=== PATIENT | male | born 1935 | race Caucasian/White ===

== ENCOUNTER 2016-12-28 20:04 | Emergency (ER) | payer MEDICARE, BC ==
[2016-12-28] MEDS ORDERED: Furosemide 40 MG/4 ML VIAL IVPUSH ONE (20:53)
[2016-12-28 21:10] LABS: CHLORIDE,CL 102 mmol/L (101-111); SODIUM,NA 140 mmol/L (135-145)
--- NOTE | 2016-12-28 21:34 | EDM.PDOC ---
ED HPI GENERAL MEDICAL PROBLEM - General Chief Complaint: Chest Pain Stated Complaint: SOB, CHEST PAINS, [id number] Time Seen by Provider: 12/28/16 20:25 Source of Information: Reports: Patient History Limitations: Reports: No Limitations - History of Present Illness INITIAL COMMENTS - FREE TEXT/NARRATIVE: ED ambulatory with c/o increased SOB over past month. Admits some noncompliance with 3rd dose of lasix, but has been taking three times daily for past 2 days, Lower extremity edema improved. SOB worse when flat, with activity and conversation. Patient had spoken with PCP Dr. Jayesh koroma and was told to come to ED. No chest pain, Patient hx cardiomyopathy, chronic a fib, hx CHF, Aortic valve replacement. Onset: Gradual Duration: Week(s): (4) Severity: Mild Associated Symptoms: Reports: Shortness of Breath. Denies: Chest Pain, Cough, cough w sputum, Loss of Appetite, Weakness - Related Data Allergies Allergy/AdvReac Type Severity Reaction Status Date / Time aspartame Allergy Hives Verified 12/28/16 20:29 peanut Allergy Hives Verified 12/28/16 20:28 Home Meds: Home Meds Carvedilol [Carvedilol] 25 mg PO BID 10/30/14 [History] Digoxin [Digox] 125 mcg PO DAILY 10/30/14 [History] Furosemide [Furosemide] 40 mg PO BID 10/30/14 [History] Lisinopril [Lisinopril] 40 mg PO DAILY 10/30/14 [History] Potassium 99 mg PO DAILY 10/30/14 [History] Warfarin [Coumadin] 2.5 mg PO ASDIRECTED 10/30/14 [History] amLODIPine [Norvasc] 5 mg PO DAILY 10/30/14 [History] Past Medical History Cardiovascular History: Reports: Heart Failure, Other (See Below) Musculoskeletal History: Reports: Arthritis Neurological History: Reports: Other (See Below) 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 Oncologic (Cancer) History: Reports: Other (See Below) 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 - Past Surgical History Cardiovascular Surgical History: Reports: Other (See Below) Musculoskeletal Surgical History: Reports: Other (See Below) Social & Family History - Family History Family Medical History: Noncontributory - Tobacco Use Smoking Status *Q: Never Smoker Years of Tobacco use: 50 Used Tobacco, but Quit: Yes Month Tobacco Last Used: 75 Second Hand Smoke Exposure: No - Caffeine Use Caffeine Use: Reports: None - Alcohol Use Days Per Week of Alcohol Use: 0 - Recreational Drug Use Recreational Drug Use: No - Living Situation & Occupation Living situation: Reports: , with Spouse Occupation: Retired ED ROS GENERAL - Review of Systems Review Of Systems: See Below Constitutional: Reports: No Symptoms HEENT: Reports: No Symptoms Respiratory: Reports: Shortness of Breath. Denies: Cough, Sputum Cardiovascular: Reports: Dyspnea on Exertion, Edema, Orthopnea. Denies: Chest Pain, Palpitations Endocrine: Reports: No Symptoms GI/Abdominal: Reports: No Symptoms : Reports: No Symptoms Musculoskeletal: Reports: No Symptoms Skin: Reports: No Symptoms Neurological: Reports: No Symptoms ED EXAM, GENERAL - Physical Exam Exam: See Below Exam Limited By: No Limitations General Appearance: Alert, Moderate Distress Eye Exam: Bilateral Eye: EOMI, PERRL Ears: Normal External Exam, Hearing Loss (mild) Nose: Normal Inspection Throat/Mouth: Normal Inspection Head: Atraumatic Neck: Limited Range of Motion Respiratory/Chest: Decreased Breath Sounds (left) Cardiovascular: Normal Peripheral Pulses, Irregularly Irregular, Other ( swooshing murmur). No: No Edema (2+ to knees) GI/Abdominal: Normal Bowel Sounds, Soft Back Exam: Normal Inspection Extremities: Pedal Edema Neurological: Alert, Oriented, Normal Cognition Psychiatric: Normal Affect Skin Exam: Warm, Dry, Intact, Normal Color Course - Vital Signs Last Recorded V/S: Last Vital Signs Temp 98.2 F 12/28/16 21:42 Pulse 68 12/28/16 21:42 Resp 20 12/28/16 21:42 BP 105/56 L 12/28/16 21:42 Pulse Ox 93 L 12/28/16 21:42 - Orders/Labs/Meds Orders: Active Orders 24 hr Category Date Time Status EKG 12 Lead [EKG Documentation Completion] [RC] URGENT Care 12/28/16 20:11 Active Labs: Laboratory Tests 12/28/16 12/28/16 12/28/16 Range/Units 20:18 20:18 20:18 WBC 9.0 (5.0-10.0) 10^3/uL RBC 4.86 (4.6-6.2) 10^6/uL Hgb 15.7 (14.0-18.0) g/dL Hct 45.9 (40.0-54.0) % MCV 94.4 (80-100) fL MCH 32.3 (27.0-34.0) pg MCHC 34.2 (33.0-35.0) g/dL Plt Count 173 (150-450) 10^3/uL Neut % (Auto) 63.9 (42.2-75.2) % Lymph % (Auto) 19.0 L (20.5-50.1) % [place] % (Auto) 12.1 H (2-8) % Eos % (Auto) 4.2 H (1.0-3.0) % Baso % (Auto) 0.8 (0.0-1.0) % PT (9.0-12.0) SEC INR (0.9-1.2) Sodium 140 (135-145) mmol/L Potassium 4.0 (3.6-5.0) mmol/L Chloride 102 (101-111) mmol/L Carbon Dioxide 29.0 (21.0-31.0) mmol/L Anion Gap 13.0 BUN 17 (7-18) mg/dL Creatinine 0.9 (0.6-1.3) mg/dL Est Cr Clr Drug Dosing 66.55 mL/min Estimated GFR (MDRD) > 60 BUN/Creatinine Ratio 18.88 Glucose 105 (74-105) mg/dL Calcium 8.0 L (8.4-10.2) mg/dl Magnesium 2.0 (1.8-2.5) mg/dL Total Bilirubin 0.7 (0.2-1.0) mg/dL AST 39 (10-42) IU/L ALT 29 (10-60) IU/L Alkaline Phosphatase 111 (42-121) IU/L CK-MB (CK-2) 2.60 (0.4-4.7) ng/mL Troponin I 0.02 (0.00-0.02) ng/ml B-Natriuretic Peptide 194 H (0-100) pg/ml Total Protein 4.9 L (6.7-8.2) g/dl Albumin 2.6 L (3.2-5.5) g/dl Globulin 2.3 Albumin/Globulin Ratio 1.13 Amylase 68 (28-100) U/L Lipase 36 (22-51) U/L Digoxin (0-2.5) ng/ml 12/28/16 12/28/16 Range/Units 20:18 20:18 WBC (5.0-10.0) 10^3/uL RBC (4.6-6.2) 10^6/uL Hgb (14.0-18.0) g/dL Hct (40.0-54.0) % MCV (80-100) fL MCH (27.0-34.0) pg MCHC (33.0-35.0) g/dL Plt Count (150-450) 10^3/uL Neut % (Auto) (42.2-75.2) % Lymph % (Auto) (20.5-50.1) % [place] % (Auto) (2-8) % Eos % (Auto) (1.0-3.0) % Baso % (Auto) (0.0-1.0) % PT 21.5 H (9.0-12.0) SEC INR 2.1 H (0.9-1.2) Sodium (135-145) mmol/L Potassium (3.6-5.0) mmol/L Chloride (101-111) mmol/L Carbon Dioxide (21.0-31.0) mmol/L Anion Gap BUN (7-18) mg/dL Creatinine (0.6-1.3) mg/dL Est Cr Clr Drug Dosing mL/min Estimated GFR (MDRD) BUN/Creatinine Ratio Glucose (74-105) mg/dL Calcium (8.4-10.2) mg/dl Magnesium (1.8-2.5) mg/dL Total Bilirubin (0.2-1.0) mg/dL AST (10-42) IU/L ALT (10-60) IU/L Alkaline Phosphatase (42-121) IU/L CK-MB (CK-2) (0.4-4.7) ng/mL Troponin I (0.00-0.02) ng/ml B-Natriuretic Peptide (0-100) pg/ml Total Protein (6.7-8.2) g/dl Albumin (3.2-5.5) g/dl Globulin Albumin/Globulin Ratio Amylase (28-100) U/L Lipase (22-51) U/L Digoxin 0.6 (0-2.5) ng/ml Meds: Medications Discontinued Medications Generic Name Dose Route Start Last Admin Trade Name Porfirio PRN Reason Stop Dose Admin Furosemide 40 mg 12/28/16 20:53 12/28/16 21:00 Lasix IVPUSH 12/28/16 20:54 40 mg NOW ONE Administration - Re-Assessments/Exams Free Text/Narrative Re-Assessment/Exam: Symptoms improved following Lasix IV and 1500ml diuresis. Talking full sentences without noted obvious dyspnea. Discussed potential admission or transfer with patient for further management of pulmonary edema. Patient refused admission or transfer. Agreeable to follow with PCP in am. present during recommendations. Departure - Departure Time of Disposition: 22:35 Disposition: Home, Self-Care 01 Condition: Fair Clinical Impression: Dyspnea, Cardiomyopathy, Chronic atrial fibrillation, Pleural effusion Forms: ED Department Discharge Additional Instructions: Take lasix as directed three times daily follow up with Dr Wetzel's office in am and with Dr. Mcconnell Urgent return to ER if increased difficulty breathing or chest pain - My Orders Last 24 Hours: My Active Orders 12/28/16 20:11 EKG 12 Lead [EKG Documentation Completion] [RC] URGENT - Assessment/Plan Last 24 Hours: My Active Orders 12/28/16 20:11 EKG 12 Lead [EKG Documentation Completion] [RC] URGENT
[2016-12-28 21:43] VITALS: BP 105/56
--- NOTE | 2017-01-05 10:54 | EKG ---
12/28/2016- STU SRINIVASAN - EKG per my reading shows atrial fibrillation with inferior Q-waves. [facility] /[id number]
== END 2016-12-28 22:46 | disposition home or self-care (01) ==
LOC: DL.ED 20:04
DX: R06.00 Dyspnea, unspecified (principal); I42.9 Cardiomyopathy, unspecified; I48.2 Chronic atrial fibrillation; J90 Pleural effusion, not elsewhere classified; I50.9 Heart failure, unspecified; Z79.01 Long term (current) use of anticoagulants; Z79.899 Other long term (current) drug therapy; Z91.018 Allergy to other foods; Z95.2 Presence of prosthetic heart valve; I35.9 Nonrheumatic aortic valve disorder, unspecified; I34.0 Nonrheumatic mitral (valve) insufficiency; I36.1 Nonrheumatic tricuspid (valve) insufficiency
CPT/HCPCS: 36415; 71010; 80053; 80162; 82150; 82553; 83690; 83735; 83880; 84484; 85025; 85610; 93005; 93010; 93306; 96374; 99284; 99285; J1940

== ENCOUNTER 2017-05-12 19:22 | Inpatient (IN) | payer MEDICARE, BC ==
[2017-05-12 20:16] LABS: CHLORIDE,CL 105 mmol/L (101-111); SODIUM,NA 139 mmol/L (135-145)
[2017-05-12] MEDS ORDERED: Furosemide 40 MG/4 ML VIAL IVPUSH ONE ×2 (20:21→21:32)
--- NOTE | 2017-05-12 20:56 | EDM.PDOC ---
ED HPI GENERAL MEDICAL PROBLEM - General Chief Complaint: Cardiovascular Problem Stated Complaint: [id number] EDEMA TOLD BY DR ROJAS TO COME Time Seen by Provider: 05/12/17 19:40 Source of Information: Reports: Patient, Family History Limitations: Reports: No Limitations - History of Present Illness INITIAL COMMENTS - FREE TEXT/NARRATIVE: ED with c/o gradual increasing SOB and weight gain. Notes baseline is 200, today 207#. No chest pain. Similar sx in december and IV lasix improved symptoms, Stated he was recommended to stay but did not. Activity tolerance decreased. Unable to bend over and tie shoes as feels abdomen also full of fluid and "pushing everything up when bends over. Edema to legs increasing, now up above knees. Hx atrial fib. Onset: Gradual - Related Data Allergies Allergy/AdvReac Type Severity Reaction Status Date / Time aspartame Allergy Hives Verified 05/12/17 19:30 peanut Allergy Hives Verified 05/12/17 19:30 Home Meds: Home Meds Carvedilol [Carvedilol] 25 mg PO BID 10/30/14 [History] Digoxin [Digox] 125 mcg PO DAILY 10/30/14 [History] Furosemide [Furosemide] 40 mg PO TID 10/30/14 [History] Lisinopril [Lisinopril] 40 mg PO DAILY 10/30/14 [History] Warfarin [Coumadin] 2.5 mg PO ASDIRECTED 10/30/14 [History] Potassium Chloride [Klor-Con M20] 20 meq PO DAILY 05/12/17 [History] Past Medical History Cardiovascular History: Reports: Afib, Heart Failure Musculoskeletal History: Reports: Arthritis Neurological History: Reports: Other (See Below) 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 Oncologic (Cancer) History: Reports: Other (See Below) 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 - Past Surgical History Cardiovascular Surgical History: Reports: Valve Replacement Social & Family History - Family History Family Medical History: Noncontributory - Tobacco Use Smoking Status *Q: Never Smoker Years of Tobacco use: 50 Used Tobacco, but Quit: Yes Month Tobacco Last Used: 77 Second Hand Smoke Exposure: No - Caffeine Use Caffeine Use: Reports: None - Alcohol Use Days Per Week of Alcohol Use: 0 - Recreational Drug Use Recreational Drug Use: No - Living Situation & Occupation Living situation: Reports: , with Spouse Occupation: Retired ED ROS GENERAL - Review of Systems Review Of Systems: See Below Constitutional: Reports: No Symptoms HEENT: Reports: No Symptoms Respiratory: Reports: Shortness of Breath Cardiovascular: Reports: Edema. Denies: Chest Pain GI/Abdominal: Reports: Diarrhea, Distension : Reports: No Symptoms Musculoskeletal: Reports: No Symptoms Skin: Reports: No Symptoms Neurological: Reports: No Symptoms ED EXAM, GENERAL - Physical Exam Exam: See Below Exam Limited By: No Limitations General Appearance: Alert, Mild Distress (dypnea with ambulation, minimal at rest, talking full sentences) Eye Exam: Bilateral Eye: EOMI Ears: Normal External Exam, Normal TMs Nose: Normal Inspection Throat/Mouth: Normal Inspection Head: Atraumatic, Normocephalic Neck: Normal Inspection Respiratory/Chest: Decreased Breath Sounds, Crackles (fine left base). No: Rhonchi, Wheezing Cardiovascular: Normal Peripheral Pulses, Diastolic Murmur. No: Regular Rate, Rhythm, No Edema (3+to knees bilaterally) GI/Abdominal: Normal Bowel Sounds, Soft, Distended. No: Tender Back Exam: Normal Inspection Extremities: Normal Range of Motion Neurological: Alert, Oriented, Normal Cognition Skin Exam: Warm, Dry, Intact, Normal Color Course - Vital Signs Last Recorded V/S: Last Vital Signs Temp 95.7 F 05/12/17 19:25 Pulse 74 05/12/17 19:25 Resp 18 05/12/17 19:25 BP 145/89 H 05/12/17 19:25 Pulse Ox 93 L 05/12/17 19:25 - Orders/Labs/Meds Orders: Active Orders 24 hr Category Date Time Status EKG 12 Lead [EKG Documentation Completion] [RC] URGENT Care 05/12/17 20:22 Active DIGOXIN [CHEM] Stat Lab 05/12/17 19:50 Received Furosemide [Lasix] Med 05/12/17 21:32 Once 40 mg IVPUSH NOW ONE Labs: Laboratory Tests 05/12/17 05/12/17 05/12/17 Range/Units 19:50 19:50 19:50 WBC 7.9 (5.0-10.0) 10^3/uL RBC 4.70 (4.6-6.2) 10^6/uL Hgb 15.3 (14.0-18.0) g/dL Hct 45.2 (40.0-54.0) % MCV 96.2 (80-100) fL MCH 32.6 (27.0-34.0) pg MCHC 33.8 (33.0-35.0) g/dL Plt Count 139 L (150-450) 10^3/uL Neut % (Auto) 65.0 (42.2-75.2) % Lymph % (Auto) 19.1 L (20.5-50.1) % [place] % (Auto) 11.3 H (2-8) % Eos % (Auto) 4.0 H (1.0-3.0) % Baso % (Auto) 0.6 (0.0-1.0) % PT 20.6 H (9.0-12.0) SEC INR 2.0 H (0.9-1.2) Sodium 139 (135-145) mmol/L Potassium 3.8 (3.6-5.0) mmol/L Chloride 105 (101-111) mmol/L Carbon Dioxide 28.0 (21.0-31.0) mmol/L Anion Gap 9.8 BUN 22 H (7-18) mg/dL Creatinine 0.9 (0.6-1.3) mg/dL Est Cr Clr Drug Dosing 65.46 mL/min Estimated GFR (MDRD) > 60 BUN/Creatinine Ratio 24.44 Glucose 137 H (74-105) mg/dL Calcium 7.8 L (8.4-10.2) mg/dl Total Bilirubin 1.2 H (0.2-1.0) mg/dL AST 40 (10-42) IU/L ALT 27 (10-60) IU/L Alkaline Phosphatase 103 (42-121) IU/L Troponin I 0.03 H* (0.00-0.02) ng/ml B-Natriuretic Peptide 263 H (0-100) pg/ml Total Protein 5.2 L (6.7-8.2) g/dl Albumin 2.6 L (3.2-5.5) g/dl Globulin 2.6 Albumin/Globulin Ratio 1.00 Meds: Medications Discontinued Medications Generic Name Dose Route Start Last Admin Trade Name Freq PRN Reason Stop Dose Admin Furosemide 40 mg 05/12/17 20:21 05/12/17 20:31 Lasix IVPUSH 05/12/17 20:22 40 mg NOW ONE Administration - Radiology Interpretation Free Text/Narrative:: CXR, Left pleural effusion - Re-Assessments/Exams Free Text/Narrative Re-Assessment/Exam: 05/12/17 21:[address] Coronel, agree to admit for further eval and management CHF Departure - Departure Time of Disposition: 21:34 Disposition: Admitted As Inpatient 68 Condition: Good Clinical Impression: CHF, Congestive heart failure, Chronic atrial fibrillation, Pleural effusion Cardiomyopathy Qualifiers: Cardiomyopathy type: unspecified Qualified Code(s): I42.9 - Cardiomyopathy, unspecified Dyspnea Qualifiers: Dyspnea type: dyspnea on exertion Qualified Code(s): R06.09 - Other forms of dyspnea Forms: ED Department Discharge - My Orders Last 24 Hours: My Active Orders 05/12/17 19:50 DIGOXIN [CHEM] Stat 05/12/17 20:22 EKG 12 Lead [EKG Documentation Completion] [RC] URGENT 05/12/17 21:32 Furosemide [Lasix] 40 mg IVPUSH NOW ONE - Assessment/Plan Last 24 Hours: My Active Orders 05/12/17 19:50 DIGOXIN [CHEM] Stat 05/12/17 20:22 EKG 12 Lead [EKG Documentation Completion] [RC] URGENT 05/12/17 21:32 Furosemide [Lasix] 40 mg IVPUSH NOW ONE
[2017-05-12] MEDS ORDERED: Warfarin 2.5 MG Tab PO SCH ×2 (22:15)
[2017-05-12] MEDS ORDERED: Ondansetron 4 MG/2 ML SDV IVPUSH PRN (22:16)
[2017-05-12] MEDS ORDERED: Polyethylene Glycol 3350 Powder 17 GM Packet PO PRN (22:16)
[2017-05-12] MEDS ORDERED: Acetaminophen 325 MG Tab PO PRN (22:16)
--- NOTE | 2017-05-12 22:31 | PCM.HP ---
H&P History of Present Illness - General Date of Service: 05/12/17 Admit Problem/Dx: Admission Diagnosis/Problem Admission Diagnosis/Problem Acute congestive heart failure - History of Present Illness Initial Comments - Free Text/Narative: 82-year-old male with past medical history of systolic congestive heart failure , paroxysmal atrial fibrillation, obstructive sleep apnea, hypertension, hyperlipidemia, aortic valve disease, cerebral artery occlusion with cerebral infarction, thrombocytopenia present to the emergency room with complaint of shortness breath, lower extremities/scrotum/abdominal edema started 3-4 weeks ago and getting worse. Patient stated that he will get very winded if he climbs one flight of stairs also if he pains over to tie his shoes or walk fast to the bathroom. He denies chest pain, palpitation, heart racing, cough, hemoptysis, upper spirits symptoms, abdominal pain, diarrhea, constipation, blood in stool, black stool, urinary symptoms, any other symptoms or concerns. Patient stated that he had similar symptoms last December and his Lasix was increased to 40 mg 3 times a day. In emergency room laboratory workup reported unremarkable CBC except for platelet of 139 and INR 2.0. Troponin 0.03. BNP 263. Sodium 139. Potassium 3.8. Creatinine 0.9. Total bilirubin 1.2. AST 40. AST 27. Alkaline phosphatase 103. Total protein 5.2. Albumin 2.6. Chest x-ray reported mild interstitial edema. Small left pleural effusion. Left lower lobe atelectasis versus consolidation. Abdominal x-ray reported no obstruction or free air. EKG shows atrial fibrillation with heart rate of 81. Patient was given 80 mg of Lasix in the emergency room. - Related Data Allergies/Adverse Reactions: Allergies Allergy/AdvReac Type Severity Reaction Status Date / Time aspartame Allergy Hives Verified 05/12/17 22:09 peanut Allergy Hives Verified 05/12/17 22:09 Home Medications: Home Meds Carvedilol [Carvedilol] 25 mg PO BID 10/30/14 [History] Digoxin [Digox] 125 mcg PO DAILY 10/30/14 [History] Furosemide [Furosemide] 40 mg PO TID 10/30/14 [History] Lisinopril [Lisinopril] 40 mg PO DAILY 10/30/14 [History] Methylcellulose (with Sugar) [Citrucel] 454 gm PO DAILY 05/12/17 [History] Potassium Chloride [Klor-Con M20] 20 meq PO DAILY 05/12/17 [History] Warfarin [Coumadin] 2.5 mg PO ASDIRECTED 05/12/17 [History] Warfarin [Coumadin] 5 mg PO ASDIRECTED 05/12/17 [History] Past Medical History Cardiovascular History: Reports: Afib, Heart Failure Musculoskeletal History: Reports: Arthritis Neurological History: Reports: Other (See Below) 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 Oncologic (Cancer) History: Reports: Other (See Below) 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 - Past Surgical History Cardiovascular Surgical History: Reports: Valve Replacement Social & Family History - Family History Family Medical History: Noncontributory - Tobacco Use Smoking Status *Q: Never Smoker Years of Tobacco use: 50 Used Tobacco, but Quit: Yes Month Tobacco Last Used: 75 Second Hand Smoke Exposure: No - Caffeine Use Caffeine Use: Reports: None - Alcohol Use Days Per Week of Alcohol Use: 0 - Recreational Drug Use Recreational Drug Use: No - Living Situation & Occupation Living situation: Reports: , with Spouse Occupation: Retired H&P Review of Systems - Review of Systems: Review Of Systems: ROS reveals no pertinent complaints other than HPI. Exam - Exam Exam: See Below - Vital Signs Vital Signs: Last Vital Signs Temp 36.6 C 05/12/17 22:18 Pulse 64 05/12/17 22:18 Resp 20 05/12/17 22:18 BP 105/59 L 05/12/17 22:18 Pulse Ox 93 L 05/12/17 22:18 Weight: 92.986 kg - Exam General: Alert, Oriented, Cooperative, Mild Distress. No: Moderate Distress, Severe Distress, Sedated, Lethargic, Obtunded HEENT: Conjunctiva Clear, EACs Clear, EOMI, Hearing Intact, Mucosa Moist & [place] , Nares Patent, Normal Nasal Septum, Posterior Pharynx Clear, Pupils Equal, Pupils Reactive, TMs Clear Neck: Supple, Trachea Midline Lungs: Decreased Breath Sounds (Mostly basis), Crackles (In basis). No: Rhonchi , Rub, Stridor, Wheezing Cardiovascular: Normal S1, Normal S2, Irregular Rhythm GI/Abdominal Exam: Normal Bowel Sounds, Soft, Non-Tender, No Organomegaly, No Abnormal Bruit, No Mass, Distended. No: Guarding, Rigid, Rebound, Tender, Hepatomegaly, Splenomegaly (Male) Exam: Deferred Rectal (Males) Exam: Deferred Back Exam: Normal Inspection, Full Range of Motion. No: CVA Tenderness (L), CVA Tenderness (R) Extremities: Normal Range of Motion, Non-Tender, Normal Capillary Refill, Other (+3 bilateral lower extremities edema from ankle to upper thigh.) Peripheral Pulses: 2+: Radial (L), Radial (R) Skin: Dry, Intact. No: Pet[place]ia Neurological: Cranial Nerves Intact, Reflexes Equal Bilateral Neuro Extensive - Mental Status: Alert, Oriented x3, Normal Cognition Psychiatric: Alert, Normal Affect, Normal Mood - Patient Data Result Diagrams: 05/12/17 19:50 05/12/17 19:50 *Q Meaningful Use (ADM) - VTE *Q VTE Criteria *Q: - Stroke *Q Stroke Criteria *Q: - AMI *Q AMI Criteria *Q: - Problem List (1) Acute on chronic systolic (congestive) heart failure SNOMED Code(s): 377043685 ICD Code: I50.23 - ACUTE ON CHRONIC SYSTOLIC (CONGESTIVE) HEART FAILURE Status: Acute Priority: High Current Visit: Yes (2) Hypoalbuminemia SNOMED Code(s): 841279427 ICD Code: E88.09 - OTH DISORDERS OF PLASMA-PROTEIN METABOLISM, NEC Status: Chronic Current Visit: Yes (3) Thrombocytopenia SNOMED Code(s): 910696721 ICD Code: D69.6 - THROMBOCYTOPENIA, UNSPECIFIED Status: Chronic Current Visit: Yes (4) Essential hypertension SNOMED Code(s): 29565475 ICD Code: I10 - ESSENTIAL (PRIMARY) HYPERTENSION Status: Chronic Current Visit: Yes (5) Aortic valve disease SNOMED Code(s): 7592129 ICD Code: I35.9 - NONRHEUMATIC AORTIC VALVE DISORDER, UNSPECIFIED Status: Chronic Current Visit: Yes (6) Chronic atrial fibrillation SNOMED Code(s): 322197051 ICD Code: I48.2 - CHRONIC ATRIAL FIBRILLATION Status: Chronic Current Visit: Yes (7) Pleural effusion SNOMED Code(s): 58334337 ICD Code: J90 - PLEURAL EFFUSION, NOT ELSEWHERE CLASSIFIED Status: Chronic Current Visit: Yes Problem List Initiated/Reviewed/Updated: Yes Orders Last 24hrs: Active Orders 24 hr Category Date Time Status Patient Status [ADT] Routine ADT 05/12/17 22:17 Active Antiembolic Devices [RC] PER UNIT ROUTINE Care 05/12/17 22:22 Ordered Bedrest Bathroom Privileges [RC] ASDIRECTED Care 05/12/17 22:16 Ordered Cardiac Monitoring [RC] CONTINUOUS Care 05/12/17 22:21 Ordered Height and Weight [RC] DAILY Care 05/12/17 22:16 Ordered Intake and Output [RC] Q6H Care 05/12/17 22:20 Ordered Notify Provider Vital Signs [RC] ASDIRECTED Care 05/12/17 22:21 Ordered Oxygen Therapy [RC] PRN Care 05/12/17 22:17 Ordered VTE/DVT Education [RC] PER UNIT ROUTINE Care 05/12/17 22:17 Ordered Vital Signs [RC] Q4H Care 05/12/17 22:17 Ordered 2 Gram Sodium Diet [DIET] Diet 05/12/17 Breakfast Active CBC WITH AUTO DIFF [HEME] AM Lab 05/13/17 05:11 Ordered COMPREHENSIVE METABOLIC PN,CMP [CHEM] AM Lab 05/13/17 05:11 Ordered INR,PT,PROTHROMBIN TIME [COAG] AM Lab 05/13/17 05:11 Ordered MAGNESIUM [CHEM] AM Lab 05/13/17 05:11 Ordered TROPONIN I [CHEM] AM Lab 05/13/17 05:11 Ordered Acetaminophen [Tylenol] Med 05/12/17 22:16 Ordered 650 mg PO Q4H PRN Albumin 25% [Flexbumin 25%] Med 05/12/17 22:15 Ordered 12.5 gm in 50 ml IV Q8H Carvedilol [Coreg] Med 05/13/17 09:00 Ordered 25 mg PO BID Digoxin [Lanoxin] Med 05/13/17 09:00 Ordered 125 mcg PO DAILY Furosemide [Lasix] Med 05/13/17 06:00 Ordered 40 mg IVPUSH Q8H Lisinopril [Lisinopril] Med 05/13/17 09:00 Ordered 40 mg PO DAILY Methylcellulose (with Sugar) [Citrucel] Med 05/13/17 09:00 Ordered 454 gm PO DAILY Ondansetron [Zofran] Med 05/12/17 22:16 Ordered 4 mg IVPUSH Q6H PRN Polyethylene Glycol 3350 [MiraLAX] Med 05/12/17 22:16 Ordered 17 gm PO DAILY PRN Potassium Chloride [Klor-Con 10] Med 05/13/17 06:00 Ordered 10 meq PO TIDMEALS Sodium Chloride 0.9% [Saline Flush] Med 05/12/17 22:16 Ordered 10 ml FLUSH ASDIRECTED PRN Warfarin Pharmacy to Dose [Pharmacy to Dose - Warfarin] Med 05/12/17 22:30 Ordered 1 dose .XX ASDIRECTED Warfarin [Coumadin] Med 05/12/17 22:15 Ordered 2.5 mg PO ASDIRECTED Warfarin [Coumadin] Med 05/12/17 22:15 Ordered 5 mg PO ASDIRECTED Antiembolic Hose [OM.PC] Per Unit Routine Oth 05/12/17 22:21 Ordered Saline Lock Insert [OM.PC] Routine Oth 05/12/17 22:16 Ordered Resuscitation Status Routine Resus Stat 05/12/17 22:16 Ordered Medication Orders Carvedilol (Coreg) 25 mg PO BID ADA Digoxin (Lanoxin) 125 mcg PO DAILY [facility] Furosemide (Lasix) 40 mg IVPUSH Q8H ADA Albumin Human (Flexbumin 25%) 12.5 gm in 50 mls @ 100 mls/hr IV Q8H ADA Stop: 05/14/17 22:16 Non-Formulary Medication (Lisinopril [Lisinopril]) 40 mg PO DAILY [facility] Non-Formulary Medication (Methylcellulose (With Sugar) [Citrucel]) 454 gm PO DAILY [facility] Potassium Chloride (Klor-Con 10) 10 meq PO TIDMEALS ADA Warfarin Sodium (Coumadin) 2.5 mg PO ASDIRECTED [facility] Warfarin Sodium (Coumadin) 5 mg PO ASDIRECTED [facility] Warfarin Sodium (Pharmacy To Dose - Warfarin) 1 dose .XX ASDIRECTED [facility] Assessment/Plan Comment:: Impression 82-year-old female with a history of congestive heart failure, atrial fibrillation presented with anasarca, possible ascites, pulmonary edema. His albumin is low. I reviewed his echocardiogram report from 12/28/16 Which Reported Ejection Fraction 45-50% with Mild Global Hypokinesia. Plan Patient received 80 mg of Lasix IV in the emergency room and he gave good urine output -Lasix 40 mg IV every 8 hours -Potassium chloride 10 mEq every 8 hours while on IV potassium -Albumin 25% every 8 hours for 2 days -We'll consider starting spironolactone after his acute event improved -I and os and daily weight -Continue digoxin, lisinopril, carvedilol -Pharmacy is consulted for warfarin dosing -Repeat labs in the morning Patient is on warfarin and INR is therapeutic so no need for further DVT prophylaxis Patient wants to be full code Plan of care was discussed with patient and he verbalized understanding agreed with it.
[2017-05-12] MEDS: Albumin 25% 12.5 GM/50 ML BAG IV SCH (23:02)
[2017-05-13] MEDS: Potassium Chloride 10 MEQ Tab.ER PO SCH ×4 (06:02→17:49)
[2017-05-13] MEDS: Furosemide 40 MG/4 ML VIAL IVPUSH SCH ×3 (06:13→22:15)
[2017-05-13] MEDS: Albumin 25% 12.5 GM/50 ML BAG IV SCH ×3 (06:17→22:15)
[2017-05-13 07:05] LABS: CHLORIDE,CL 106 mmol/L (101-111); SODIUM,NA 140 mmol/L (135-145)
[2017-05-13] MEDS ORDERED: Potassium Chloride 10 MEQ Tab.ER PO ONE (08:39)
[2017-05-13] MEDS: Digoxin 250 MCG Tab PO SCH (10:25)
[2017-05-13] MEDS: Carvedilol 25 MG Tab PO SCH ×2 (10:26→22:15)
[2017-05-13] MEDS: Lisinopril 20 MG Tab PO SCH (10:27)
--- NOTE | 2017-05-13 10:57 | PCM.PN ---
- General Info Date of Service: 05/13/17 Admission Dx/Problem (Free Text): Admission Diagnosis/Problem Admission Diagnosis/Problem Acute congestive heart failure Subjective Update: Patient stated that he is feeling better. His lower extremities edema and abdominal edema improved. His shortness breath improved. He denies chest pain, cough, palpitation, nausea, vomiting, fever, chills, any other symptoms or concerns. - Patient Data Vitals - Most Recent: Last Vital Signs Temp 36.9 C 05/13/17 07:00 Pulse 71 05/13/17 10:26 Resp 20 05/13/17 07:00 BP 119/68 05/13/17 10:27 Pulse Ox 94 L 05/13/17 07:00 Weight - Most Recent: 91.172 kg I&O - Last 24 Hours: Intake & Output 05/12/17 05/13/17 05/13/17 22:59 06:59 14:59 Intake Total 100 152 700 Output Total 8907 688 1579 Balance -1000 -733 300 Lab Results Last 24 Hours: Laboratory Results - last 24 hr 05/13/17 05/13/17 05/13/17 Range/Units 05:45 05:45 05:45 WBC 7.7 (5.0-10.0) 10^3/uL RBC 4.40 L (4.6-6.2) 10^6/uL Hgb 14.4 (14.0-18.0) g/dL Hct 42.6 (40.0-54.0) % MCV 96.8 (80-100) fL MCH 32.7 (27.0-34.0) pg MCHC 33.8 (33.0-35.0) g/dL Plt Count 134 L (150-450) 10^3/uL Neut % (Auto) 60.1 (42.2-75.2) % Lymph % (Auto) 21.8 (20.5-50.1) % Reynolds % (Auto) 13.3 H (2-8) % Eos % (Auto) 4.3 H (1.0-3.0) % Baso % (Auto) 0.5 (0.0-1.0) % PT 19.9 H (9.0-12.0) SEC INR 2.0 H (0.9-1.2) Sodium 140 (135-145) mmol/L Potassium 3.4 L (3.6-5.0) mmol/L Chloride 106 (101-111) mmol/L Carbon Dioxide 29.0 (21.0-31.0) mmol/L Anion Gap 8.4 BUN 22 H (7-18) mg/dL Creatinine 1.0 (0.6-1.3) mg/dL Est Cr Clr Drug Dosing 58.92 mL/min Estimated GFR (MDRD) > 60 BUN/Creatinine Ratio 22.00 Glucose 93 (74-105) mg/dL Calcium 7.7 L (8.4-10.2) mg/dl Magnesium 1.9 (1.8-2.5) mg/dL Total Bilirubin 0.7 (0.2-1.0) mg/dL AST 33 (10-42) IU/L ALT 25 (10-60) IU/L Alkaline Phosphatase 98 (42-121) IU/L Troponin I 0.03 H* (0.00-0.02) ng/ml Total Protein 4.7 L (6.7-8.2) g/dl Albumin 2.5 L (3.2-5.5) g/dl Globulin 2.2 Albumin/Globulin Ratio 1.14 Med Orders - Current: Current Medications Acetaminophen (Tylenol) 650 mg PO Q4H PRN PRN Reason: Pain (Mild 1-3)/fever Carvedilol (Coreg) 25 mg PO BID [facility] Last Admin: 05/13/17 10:26 Dose: 25 mg Digoxin (Lanoxin) 125 mcg PO DAILY [facility] Last Admin: 05/13/17 10:25 Dose: 125 mcg Furosemide (Lasix) 40 mg IVPUSH Q8H [facility] Last Admin: 05/13/17 06:13 Dose: 40 mg Albumin Human (Flexbumin 25%) 12.5 gm in 50 mls @ 100 mls/hr IV Q8H [facility] Stop: 05/14/17 22:16 Last Admin: 05/13/17 06:17 Dose: 100 mls/hr Lisinopril (Prinivil) 40 mg PO DAILY [facility] Last Admin: 05/13/17 10:27 Dose: 40 mg Methylcellulose (Citrucel) 500 mg PO DAILY [facility] Last Admin: 05/13/17 10:26 Dose: 500 mg Ondansetron HCl (Zofran) 4 mg IVPUSH Q6H PRN PRN Reason: Nausea/Vomiting Polyethylene Glycol (Miralax) 17 gm PO DAILY PRN PRN Reason: Constipation Potassium Chloride (Klor-Con 10) 10 meq PO TIDMEALS [facility] Last Admin: 05/13/17 10:26 Dose: 10 meq Sodium Chloride (Saline Flush) 10 ml FLUSH ASDIRECTED PRN PRN Reason: Keep Vein Open Warfarin Sodium (Pharmacy To Dose - Warfarin) 1 dose .XX ASDIRECTED [facility] Warfarin Sodium (Coumadin) 2.5 mg PO ONETIME ONE Stop: 05/13/17 14:01 Discontinued Medications Furosemide (Lasix) 40 mg IVPUSH NOW ONE Stop: 05/12/17 20:22 Last Admin: 05/12/17 20:31 Dose: 40 mg Furosemide (Lasix) 40 mg IVPUSH NOW ONE Stop: 05/12/17 21:33 Last Admin: 05/12/17 21:41 Dose: 40 mg Potassium Chloride (Klor-Con 10) 10 meq PO ONETIME ONE Stop: 05/13/17 08:40 Last Admin: 05/13/17 10:26 Dose: 10 meq Warfarin Sodium (Coumadin) 2.5 mg PO ASDIRECTED [facility] Warfarin Sodium (Coumadin) 5 mg PO ASDIRECTED [facility] - Exam General: Alert, Oriented, Cooperative, No Acute Distress. No: Mild Distress, Moderate Distress, Severe Distress, Sedated, Lethargic, Obtunded HEENT: Pupils Equal, Pupils Reactive, EOMI, Mucous Membr. Moist/[place] Neck: Supple, Trachea Midline Lungs: Normal Respiratory Effort, Crackles (In basis). No: Rales, Rhonchi, Rub , Stridor, Wheezing GI/Abdominal Exam: Normal Bowel Sounds, Soft, Non-Tender, No Organomegaly, No Abnormal Bruit, Distended (Improved from yesterday) (Male) Exam: Deferred Back Exam: Normal Inspection, Full Range of Motion. No: CVA Tenderness (L), CVA Tenderness (R) Extremities: Normal Inspection, Normal Range of Motion, Non-Tender, Normal Capillary Refill, Other (Improved lower extremities edema) Skin: Dry, Intact Neurological: No New Focal Deficit Psy/Mental Status: Alert, Normal Affect, Normal Mood - Problem List & Annotations (1) Acute on chronic systolic (congestive) heart failure SNOMED Code(s): 419915202 Code(s): I50.23 - ACUTE ON CHRONIC SYSTOLIC (CONGESTIVE) HEART FAILURE Status: Acute Priority: High Current Visit: Yes (2) Hypoalbuminemia SNOMED Code(s): 374419271 Code(s): E88.09 - OTH DISORDERS OF PLASMA-PROTEIN METABOLISM, NEC Status: Chronic Current Visit: Yes (3) Thrombocytopenia SNOMED Code(s): 279658653 Code(s): D69.6 - THROMBOCYTOPENIA, UNSPECIFIED Status: Chronic Current Visit: Yes (4) Essential hypertension SNOMED Code(s): 45680481 Code(s): I10 - ESSENTIAL (PRIMARY) HYPERTENSION Status: Chronic Current Visit: Yes (5) Aortic valve disease SNOMED Code(s): 1023212 Code(s): I35.9 - NONRHEUMATIC AORTIC VALVE DISORDER, UNSPECIFIED Status: Chronic Current Visit: Yes (6) Chronic atrial fibrillation SNOMED Code(s): 200562838 Code(s): I48.2 - CHRONIC ATRIAL FIBRILLATION Status: Chronic Current Visit: Yes (7) Pleural effusion SNOMED Code(s): 23803008 Code(s): J90 - PLEURAL EFFUSION, NOT ELSEWHERE CLASSIFIED Status: Chronic Current Visit: Yes - Problem List Review Problem List Initiated/Reviewed/Updated: Yes - My Orders Last 24 Hours: My Active Orders 05/13/17 14:00 Warfarin [Coumadin] 2.5 mg PO ONETIME ONE 05/14/17 05:11 B-TYPE NATRIURETIC PEPTIDE,BNP [CHEM] AM BASIC METABOLIC PANEL,BMP [CHEM] AM - Plan Plan:: Impression 82-year-old female with a history of congestive heart failure, atrial fibrillation presented with anasarca, possible ascites, pulmonary edema. His albumin is low. I reviewed his echocardiogram report from 12/28/16 Which Reported Ejection Fraction 45-50% with Mild Global Hypokinesia. Urine output is 2300 mL since admission Plan Patient received 80 mg of Lasix IV in the emergency room and he gave good urine output -Continue Lasix 40 mg IV every 8 hours -Continue Potassium chloride 10 mEq every 8 hours while on IV potassium -Albumin 25% every 8 hours for total of 2 days -We'll consider starting spironolactone after his acute event improved -I and os and daily weight -Continue digoxin, lisinopril, carvedilol -Pharmacy is consulted for warfarin dosing -Repeat labs in the morning Patient is on warfarin and INR is therapeutic so no need for further DVT prophylaxis Patient wants to be full code Plan of care was discussed with patient and he verbalized understanding agreed with it.
--- NOTE | 2017-05-13 11:21 | EKG ---
05/12/2017 - STU SRINIVASAN I reviewed the EKG and agree with the machine's reading. [facility] /[id number]
[2017-05-13] MEDS ORDERED: Warfarin 2.5 MG Tab PO ONE (14:00)
[2017-05-14] MEDS: Furosemide 40 MG/4 ML VIAL IVPUSH SCH (06:20)
[2017-05-14] MEDS: Sodium Chloride 0.9% 10 ML Syringe FLUSH PRN ×2 (06:23→21:59)
[2017-05-14] MEDS: Albumin 25% 12.5 GM/50 ML BAG IV SCH ×3 (06:24→21:57)
[2017-05-14 06:38] LABS: CHLORIDE,CL 106 mmol/L (101-111); SODIUM,NA 139 mmol/L (135-145)
[2017-05-14] MEDS: Digoxin 250 MCG Tab PO SCH (10:27)
[2017-05-14] MEDS: Lisinopril 20 MG Tab PO SCH (10:29)
[2017-05-14] MEDS: Carvedilol 25 MG Tab PO SCH ×2 (10:30→22:06)
[2017-05-14] MEDS: Spironolactone 25 MG Tab PO SCH (10:31)
[2017-05-14] MEDS: Potassium Chloride 10 MEQ Tab.ER PO SCH ×2 (10:38→14:59)
--- NOTE | 2017-05-14 11:01 | PCM.PN ---
- General Info Date of Service: 05/14/17 Admission Dx/Problem (Free Text): Admission Diagnosis/Problem Admission Diagnosis/Problem Acute congestive heart failure Subjective Update: Patient stated that he is feeling better. His lower extremities edema and abdominal edema continue to improved. His shortness breath improved. He denies chest pain, cough, palpitation, nausea, vomiting, fever, chills, any other symptoms or concerns. - Patient Data Vitals - Most Recent: Last Vital Signs Temp 37.2 C 05/14/17 07:00 Pulse 72 05/14/17 10:30 Resp 20 05/14/17 07:00 BP 125/80 05/14/17 10:30 Pulse Ox 94 L 05/14/17 07:00 Weight - Most Recent: 89.018 kg I&O - Last 24 Hours: Intake & Output 05/13/17 05/14/17 05/14/17 22:59 06:59 14:59 Intake Total 280 250 Output Total 1600 1175 750 Balance -9280 -2222 -500 Lab Results Last 24 Hours: Laboratory Results - last 24 hr 05/14/17 05/14/17 Range/Units 05:50 05:50 PT 19.6 H (9.0-12.0) SEC INR 1.9 H (0.9-1.2) Sodium 139 (135-145) mmol/L Potassium 3.9 (3.6-5.0) mmol/L Chloride 106 (101-111) mmol/L Carbon Dioxide 28.0 (21.0-31.0) mmol/L Anion Gap 8.9 BUN 22 H (7-18) mg/dL Creatinine 0.9 (0.6-1.3) mg/dL Est Cr Clr Drug Dosing 65.46 mL/min Estimated GFR (MDRD) > 60 Glucose 99 (74-105) mg/dL Calcium 8.2 L (8.4-10.2) mg/dl B-Natriuretic Peptide 286 H (0-100) pg/ml Med Orders - Current: Current Medications Acetaminophen (Tylenol) 650 mg PO Q4H PRN PRN Reason: Pain (Mild 1-3)/fever Carvedilol (Coreg) 25 mg PO BID [facility] Last Admin: 05/14/17 10:30 Dose: 25 mg Digoxin (Lanoxin) 125 mcg PO DAILY [facility] Last Admin: 05/14/17 10:27 Dose: 125 mcg Albumin Human (Flexbumin 25%) 12.5 gm in 50 mls @ 100 mls/hr IV Q8H [facility] Stop: 05/14/17 22:16 Last Admin: 05/14/17 06:24 Dose: 100 mls/hr Lisinopril (Prinivil) 40 mg PO DAILY [facility] Last Admin: 05/14/17 10:29 Dose: 40 mg Methylcellulose (Citrucel) 500 mg PO DAILY [facility] Last Admin: 05/14/17 10:24 Dose: 500 mg Ondansetron HCl (Zofran) 4 mg IVPUSH Q6H PRN PRN Reason: Nausea/Vomiting Polyethylene Glycol (Miralax) 17 gm PO DAILY PRN PRN Reason: Constipation Potassium Chloride (Klor-Con 10) 10 meq PO Q12H [facility] Sodium Chloride (Saline Flush) 10 ml FLUSH ASDIRECTED PRN PRN Reason: Keep Vein Open Last Admin: 05/14/17 06:23 Dose: 10 ml Spironolactone (Aldactone) 12.5 mg PO DAILY [facility] Last Admin: 05/14/17 10:31 Dose: 12.5 mg Torsemide (Demadex) 40 mg PO Q12H [facility] Warfarin Sodium (Pharmacy To Dose - Warfarin) 1 dose .XX ASDIRECTED [facility] Warfarin Sodium (Coumadin) 2.5 mg PO ONETIME ONE Stop: 05/14/17 14:01 Discontinued Medications Furosemide (Lasix) 40 mg IVPUSH NOW ONE Stop: 05/12/17 20:22 Last Admin: 05/12/17 20:31 Dose: 40 mg Furosemide (Lasix) 40 mg IVPUSH NOW ONE Stop: 05/12/17 21:33 Last Admin: 05/12/17 21:41 Dose: 40 mg Furosemide (Lasix) 40 mg IVPUSH Q8H [facility] Last Admin: 05/14/17 06:20 Dose: 40 mg Potassium Chloride (Klor-Con 10) 10 meq PO TIDMEALS [facility] Last Admin: 05/14/17 10:38 Dose: Not Given Potassium Chloride (Klor-Con 10) 10 meq PO ONETIME ONE Stop: 05/13/17 08:40 Last Admin: 05/13/17 10:26 Dose: 10 meq Torsemide (Demadex) 30 mg PO Q12H [facility] Stop: 05/14/17 14:00 Warfarin Sodium (Coumadin) 2.5 mg PO ASDIRECTED [facility] Warfarin Sodium (Coumadin) 5 mg PO ASDIRECTED [facility] Warfarin Sodium (Coumadin) 2.5 mg PO ONETIME ONE Stop: 05/13/17 14:01 Last Admin: 05/13/17 14:13 Dose: 2.5 mg - Exam General: Alert, Oriented, Cooperative, No Acute Distress. No: Moderate Distress , Severe Distress, Sedated, Lethargic, Obtunded HEENT: Pupils Equal, Pupils Reactive, EOMI, Mucous Membr. Moist/[place] Neck: Supple, Trachea Midline, No JVD Lungs: Normal Respiratory Effort, Crackles (In bases). No: Rhonchi, Rub, Stridor, Wheezing Cardiovascular: Regular Rate, Regular Rhythm GI/Abdominal Exam: Normal Bowel Sounds, Soft, Non-Tender, No Organomegaly, No Abnormal Bruit, No Mass, Distended (Markedly improved from admission exam) (Male) Exam: Deferred Back Exam: Normal Inspection, Full Range of Motion. No: CVA Tenderness (L), CVA Tenderness (R) Extremities: Normal Range of Motion, Non-Tender, Normal Capillary Refill, Other (Lower extremities edema improved markedly but still +2 bilaterally) Skin: Dry, Intact Neurological: No New Focal Deficit Psy/Mental Status: Alert, Normal Affect, Normal Mood - Problem List & Annotations (1) Acute on chronic systolic (congestive) heart failure SNOMED Code(s): 335285952 Code(s): I50.23 - ACUTE ON CHRONIC SYSTOLIC (CONGESTIVE) HEART FAILURE Status: Acute Priority: High Current Visit: Yes (2) Hypoalbuminemia SNOMED Code(s): 149971077 Code(s): E88.09 - [facility] DISORDERS OF PLASMA-PROTEIN METABOLISM, NEC Status: Chronic Current Visit: Yes (3) Thrombocytopenia SNOMED Code(s): 777837716 Code(s): D69.6 - THROMBOCYTOPENIA, UNSPECIFIED Status: Chronic Current Visit: Yes (4) Essential hypertension SNOMED Code(s): 72057079 Code(s): I10 - ESSENTIAL (PRIMARY) HYPERTENSION Status: Chronic Current Visit: Yes (5) Aortic valve disease SNOMED Code(s): 8006288 Code(s): I35.9 - NONRHEUMATIC AORTIC VALVE DISORDER, UNSPECIFIED Status: Chronic Current Visit: Yes (6) Chronic atrial fibrillation SNOMED Code(s): 619868060 Code(s): I48.2 - CHRONIC ATRIAL FIBRILLATION Status: Chronic Current Visit: Yes (7) Pleural effusion SNOMED Code(s): 33047027 Code(s): J90 - PLEURAL EFFUSION, NOT ELSEWHERE CLASSIFIED Status: Chronic Current Visit: Yes - Problem List Review Problem List Initiated/Reviewed/Updated: Yes - My Orders Last 24 Hours: My Active Orders 05/13/17 Lunch Fluid Restriction [DIET] 05/14/17 09:45 Spironolactone [Aldactone] 12.5 mg PO DAILY 05/14/17 14:00 Potassium Chloride [Klor-Con 10] 10 meq PO Q12H Torsemide [Demadex] 40 mg PO Q12H Warfarin [Coumadin] 2.5 mg PO ONETIME ONE 05/15/17 05:11 B-TYPE NATRIURETIC PEPTIDE,BNP [CHEM] AM BASIC METABOLIC PANEL,BMP [CHEM] AM MAGNESIUM [CHEM] AM 05/15/17 06:00 INR,PT,PROTHROMBIN TIME [COAG] DAILY 05/16/17 06:00 INR,PT,PROTHROMBIN TIME [COAG] DAILY 05/17/17 06:00 INR,PT,PROTHROMBIN TIME [COAG] DAILY 05/18/17 06:00 INR,PT,PROTHROMBIN TIME [COAG] DAILY 05/19/17 06:00 INR,PT,PROTHROMBIN TIME [COAG] DAILY 05/20/17 06:00 INR,PT,PROTHROMBIN TIME [COAG] DAILY - Plan Plan:: Impression 82-year-old female with a history of congestive heart failure, atrial fibrillation presented with anasarca, possible ascites, pulmonary edema. His albumin is low. I reviewed his echocardiogram report from 12/28/16 Which Reported Ejection Fraction 45-50% with Mild Global Hypokinesia. Urine output is adequate for the treatment Patient lost about 10 pounds since admission Plan Patient received 80 mg of Lasix IV in the emergency room and he gave good urine output. Then he was started on Lasix 40 mg IV every 8 hours with albumin 25% every 8 hours for 2 days. -I am changing his IV Lasix to oral torsemide 40 mg twice a day. There are some articles indicating that furosemide observation in the got could be inhibited there is abdomen/got edema -I will add spironolactone 12.5 mg for his possible ascites -Continue Potassium chloride 10 mEq supplement -Fluid restriction to 1500 mL per hour -I and os and daily weight -Continue digoxin, lisinopril, carvedilol -Pharmacy is consulted for warfarin dosing -Repeat labs in the morning Patient is on warfarin and INR is therapeutic so no need for further DVT prophylaxis Patient wants to be full code Plan of care was discussed with patient and he verbalized understanding agreed with it.
[2017-05-14] MEDS ORDERED: Torsemide 20 MG Tab PO SCH (14:00)
[2017-05-14] MEDS ORDERED: Warfarin 2.5 MG Tab PO ONE (14:00)
[2017-05-14] MEDS: Torsemide 20 MG Tab PO SCH (14:58)
[2017-05-15] MEDS: Torsemide 20 MG Tab PO SCH (03:06)
[2017-05-15] MEDS: Potassium Chloride 10 MEQ Tab.ER PO SCH (03:07)
[2017-05-15 06:47] LABS: CHLORIDE,CL 103 mmol/L (101-111); SODIUM,NA 140 mmol/L (135-145)
--- NOTE | 2017-05-15 10:39 | PCM.DCSUM1 ---
Discharge Summary - Hospital Course Free Text/Narrative:: 82-year-old male with past medical history of systolic congestive heart failure , paroxysmal atrial fibrillation, obstructive sleep apnea, hypertension, hyperlipidemia, aortic valve disease, cerebral artery occlusion with cerebral infarction, thrombocytopenia present to the emergency room with complaint of shortness breath, lower extremities/scrotum/abdominal edema started 3-4 weeks ago and getting worse. Patient stated that he was getting very winded if he climbs one flight of stairs also if he pains over to tie his shoes or walk fast to the bathroom. He gained a lot of pounds of weight in a few weeks. He denies chest pain, palpitation, heart racing, cough, hemoptysis, upper spirits symptoms , abdominal pain, diarrhea, constipation, blood in stool, black stool, urinary symptoms, any other symptoms or concerns. Patient stated that he had similar symptoms last December and his Lasix was increased to 40 mg 3 times a day. On admission laboratory workup reported unremarkable CBC except for platelet of 139 and INR 2.0. Troponin 0.03. BNP 263. Sodium 139. Potassium 3.8. Creatinine 0.9. Total bilirubin 1.2. AST 40. AST 27. Alkaline phosphatase 103. Total protein 5.2. Albumin 2.6. INR 2. Chest x-ray reported mild interstitial edema. Small left pleural effusion. Left lower lobe atelectasis versus consolidation. Abdominal x-ray reported no obstruction or free air. EKG shows atrial fibrillation with heart rate of 81. Patient was given 80 mg of Lasix in the emergency room. During hospitalization patient received 80 mg of Lasix IV in the emergency room and he gave good urine output. Then he was continued on Lasix 40 mg IV every 8 hours with albumin 25% every 8 hours for 2 days. On third day I change his IV Lasix to oral torsemide 40 mg by mouth every 12 hours. Patient received 2 doses. Also he was started on spell Aldactone 12.5 mg yesterday. His urine output in the last 24 hours is about 4 L. His weight decreased about 8-9 kg from admission. Patient did not have any acute events during hospitalization. Overnight he did not have any symptoms. He denies fever, chills, nausea, vomiting,chest pain, palpitation, heart racing, cough, hemoptysis, upper spirits symptoms, abdominal pain, diarrhea, constipation, blood in stool, black stool, urinary symptoms, any other symptoms or concerns. Today patient potassium, sodium, kidney function, WBC are all normal. His INR dropped to 1.6. Patient was advised to take extra 5 mg of warfarin today. I am discharging patient on his home medications except Lasix and changing his torsemide from 40 mg twice a day to 30 mg twice a day and continue Aldactone 12.5 mg daily. Patient was advised to see his primary care provider in 3-4 days and check for creatinine, potassium, INR and discussed with primary care provider his torsemide, potassium chloride and warfarin dosing. - Discharge Data Discharge Date: 05/15/17 Discharge Disposition: Home, Self-Care 01 Condition: Good - Discharge Diagnosis/Problem(s) (1) Acute on chronic systolic (congestive) heart failure SNOMED Code(s): 665887043 ICD Code: I50.23 - ACUTE ON CHRONIC SYSTOLIC (CONGESTIVE) HEART FAILURE Status: Acute Priority: High Current Visit: Yes (2) Hypoalbuminemia SNOMED Code(s): 749200792 ICD Code: E88.09 - [facility] DISORDERS OF PLASMA-PROTEIN METABOLISM, NEC Status: Chronic Current Visit: Yes (3) Thrombocytopenia SNOMED Code(s): 474574931 ICD Code: D69.6 - THROMBOCYTOPENIA, UNSPECIFIED Status: Chronic Current Visit: Yes (4) Essential hypertension SNOMED Code(s): 72338113 ICD Code: I10 - ESSENTIAL (PRIMARY) HYPERTENSION Status: Chronic Current Visit: Yes (5) Aortic valve disease SNOMED Code(s): 2616394 ICD Code: I35.9 - NONRHEUMATIC AORTIC VALVE DISORDER, UNSPECIFIED Status: Chronic Current Visit: Yes (6) Chronic atrial fibrillation SNOMED Code(s): 181107110 ICD Code: I48.2 - CHRONIC ATRIAL FIBRILLATION Status: Chronic Current Visit: Yes (7) Pleural effusion SNOMED Code(s): 36141919 ICD Code: J90 - PLEURAL EFFUSION, NOT ELSEWHERE CLASSIFIED Status: Chronic Current Visit: Yes - Patient Instructions Diet: Heart Healthy Diet Fluid Restriction: 1500 mL Activity: As Tolerated Showering/Bathing: May Shower Notify Provider of: Fever, Nausea and/or Vomiting - Discharge Plan Prescriptions/Med Rec: Spironolactone [Aldactone] 12.5 mg PO DAILY #30 tablet Torsemide [Demadex] 30 mg PO Q12H #60 tablet Home Medications: Home Meds Carvedilol 25 mg PO BID 10/30/14 [History] Digoxin [Digox] 125 mcg PO DAILY 10/30/14 [History] Lisinopril 40 mg PO DAILY 10/30/14 [History] Methylcellulose (with Sugar) [Citrucel] 454 gm PO DAILY 05/12/17 [History] Potassium Chloride [Klor-Con M20] 20 meq PO DAILY 05/12/17 [History] Warfarin [Coumadin] 2.5 mg PO ASDIRECTED 05/12/17 [History] Warfarin [Coumadin] 5 mg PO ASDIRECTED 05/12/17 [History] Spironolactone [Aldactone] 12.5 mg PO DAILY #30 tablet 05/15/17 [Rx] Torsemide [Demadex] 30 mg PO Q12H #60 tablet 05/15/17 [Rx] Forms: ED Department Discharge - General Info Date of Service: 05/15/17 Admission Dx/Problem (Free Text: Admission Diagnosis/Problem Admission Diagnosis/Problem Acute congestive heart failure Subjective Update: he is feeling much better better. His lower extremities edema and abdominal edema markedly improved. His shortness breath resolved. He denies chest pain, cough, palpitation, nausea, vomiting, fever, chills, any other symptoms or concerns. - Patient Data Vitals - Most Recent: Last Vital Signs Temp 36.6 C 05/15/17 07:00 Pulse 70 05/15/17 07:00 Resp 20 05/15/17 07:00 BP 126/67 05/15/17 07:00 Pulse Ox 95 05/15/17 07:00 Weight - Most Recent: 85.275 kg I&O - Last 24 hours: Intake & Output 05/14/17 05/15/17 05/15/17 22:59 06:59 14:59 Intake Total 461 525 Output Total 1700 1700 Balance -1239 -1175 Lab Results - Last 24 hrs: Laboratory Results - last 24 hr 05/15/17 05/15/17 Range/Units 05:50 05:50 PT 16.2 H (9.0-12.0) SEC INR 1.6 H (0.9-1.2) Sodium 140 (135-145) mmol/L Potassium 3.7 (3.6-5.0) mmol/L Chloride 103 (101-111) mmol/L Carbon Dioxide 29.0 (21.0-31.0) mmol/L Anion Gap 11.7 BUN 23 H (7-18) mg/dL Creatinine 0.9 (0.6-1.3) mg/dL Est Cr Clr Drug Dosing 65.46 mL/min Estimated GFR (MDRD) > 60 Glucose 92 (74-105) mg/dL Calcium 8.5 (8.4-10.2) mg/dl Magnesium 2.0 (1.8-2.5) mg/dL B-Natriuretic Peptide 237 H (0-100) pg/ml Med Orders - Current: Current Medications Acetaminophen (Tylenol) 650 mg PO Q4H PRN PRN Reason: Pain (Mild 1-3)/fever Carvedilol (Coreg) 25 mg PO BID [facility] Last Admin: 05/14/17 22:06 Dose: 25 mg Digoxin (Lanoxin) 125 mcg PO DAILY [facility] Last Admin: 05/14/17 10:27 Dose: 125 mcg Lisinopril (Prinivil) 40 mg PO DAILY [facility] Last Admin: 05/14/17 10:29 Dose: 40 mg Methylcellulose (Citrucel) 500 mg PO DAILY [facility] Last Admin: 05/14/17 10:24 Dose: 500 mg Ondansetron HCl (Zofran) 4 mg IVPUSH Q6H PRN PRN Reason: Nausea/Vomiting Polyethylene Glycol (Miralax) 17 gm PO DAILY PRN PRN Reason: Constipation Potassium Chloride (Klor-Con 10) 10 meq PO Q12H [facility] Last Admin: 05/15/17 03:07 Dose: 10 meq Sodium Chloride (Saline Flush) 10 ml FLUSH ASDIRECTED PRN PRN Reason: Keep Vein Open Last Admin: 05/14/17 21:59 Dose: 10 ml Spironolactone (Aldactone) 12.5 mg PO DAILY [facility] Last Admin: 05/14/17 10:31 Dose: 12.5 mg Torsemide (Demadex) 40 mg PO Q12H [facility] Last Admin: 05/15/17 03:06 Dose: 40 mg Warfarin Sodium (Pharmacy To Dose - Warfarin) 1 dose .XX ASDIRECTED [facility] Discontinued Medications Furosemide (Lasix) 40 mg IVPUSH NOW ONE Stop: 05/12/17 20:22 Last Admin: 05/12/17 20:31 Dose: 40 mg Furosemide (Lasix) 40 mg IVPUSH NOW ONE Stop: 05/12/17 21:33 Last Admin: 05/12/17 21:41 Dose: 40 mg Furosemide (Lasix) 40 mg IVPUSH Q8H [facility] Last Admin: 05/14/17 06:20 Dose: 40 mg Albumin Human (Flexbumin 25%) 12.5 gm in 50 mls @ 100 mls/hr IV Q8H [facility] Stop: 05/14/17 22:16 Last Admin: 05/14/17 21:57 Dose: 100 mls/hr Potassium Chloride (Klor-Con 10) 10 meq PO TIDMEALS [facility] Last Admin: 05/14/17 10:38 Dose: Not Given Potassium Chloride (Klor-Con 10) 10 meq PO ONETIME ONE Stop: 05/13/17 08:40 Last Admin: 05/13/17 10:26 Dose: 10 meq Torsemide (Demadex) 30 mg PO Q12H [facility] Stop: 05/14/17 14:00 Warfarin Sodium (Coumadin) 2.5 mg PO ASDIRECTED [facility] Warfarin Sodium (Coumadin) 5 mg PO ASDIRECTED [facility] Warfarin Sodium (Coumadin) 2.5 mg PO ONETIME ONE Stop: 05/13/17 14:01 Last Admin: 05/13/17 14:13 Dose: 2.5 mg Warfarin Sodium (Coumadin) 2.5 mg PO ONETIME ONE Stop: 05/14/17 14:01 Last Admin: 05/14/17 14:59 Dose: 2.5 mg - Exam General: Reports: Alert, Oriented, Cooperative, No Acute Distress. Denies: Mild Distress, Moderate Distress, Severe Distress, Sedated, Lethargic, Obtunded HEENT: Reports: Pupils Equal, Pupils Reactive, EOMI, Mucous Membr. Moist/[place] Neck: Reports: Supple, Trachea Midline, No JVD, No Thyromegaly Lungs: Reports: Clear to Auscultation, Normal Respiratory Effort. Denies: Crackles, Rales, Rhonchi, Wheezing Cardiovascular: Reports: Regular Rate, Regular Rhythm. Denies: No Murmurs GI/Abdominal Exam: Normal Bowel Sounds, Soft, Non-Tender, No Organomegaly, No Distention, No Abnormal Bruit, No Mass (Male) Exam: Deferred Rectal (Males) Exam: Deferred Back Exam: Reports: Normal Inspection, Full Range of Motion. Denies: CVA Tenderness (L), CVA Tenderness (R) Extremities: Normal Inspection, Normal Range of Motion, Non-Tender, Normal Capillary Refill, Pedal Edema (+1 bilateral lower extremities edema) Skin: Reports: Dry, Intact. Denies: Rash, Ecchymosis Neurological: Reports: No New Focal Deficit Psy/Mental Status: Reports: Alert, Normal Affect, Normal Mood *Q Meaningful Use (DIS) - VTE *Q VTE Criteria *Q: - Stroke *Q Stroke Criteria *Q: - AMI *Q AMI Criteria *Q:
[2017-05-15] MEDS: Carvedilol 25 MG Tab PO SCH (11:07)
[2017-05-15] MEDS: Spironolactone 25 MG Tab PO SCH (11:07)
[2017-05-15] MEDS: Digoxin 250 MCG Tab PO SCH (11:10)
[2017-05-15] MEDS: Lisinopril 20 MG Tab PO SCH (11:11)
[2017-05-15 11:13] VITALS: BP 133/86
== END 2017-05-15 11:45 | disposition home or self-care (01) | DRG 292 ==
LOC: DL.ED 19:22 → UNDOADMIN 21:43 → DL.MS 21:43
PROVIDERS: ADMIT Family Medicine; ATTEND Family Medicine
DX: I50.9 Heart failure, unspecified (principal); I48.91 Unspecified atrial fibrillation; I50.23 Acute on chronic systolic (congestive) heart failure; I42.9 Cardiomyopathy, unspecified; D49.6 Neoplasm of unspecified behavior of brain; J90 Pleural effusion, not elsewhere classified; I48.0 Paroxysmal atrial fibrillation; I10 Essential (primary) hypertension; E78.5 Hyperlipidemia, unspecified; D69.6 Thrombocytopenia, unspecified; E88.09 Other disorders of plasma-protein metabolism, not elsewhere classified; I35.9 Nonrheumatic aortic valve disorder, unspecified; Z79.899 Other long term (current) drug therapy; G47.33 Obstructive sleep apnea (adult) (pediatric); Z95.2 Presence of prosthetic heart valve; Z79.01 Long term (current) use of anticoagulants
CPT/HCPCS: 36415; 71020; 74000; 80053; 80162; 83880; 84484; 85025; 85610; 93005; 93010; 96374; 96376; 99285; J1940 ×2; 80048; 83735; A9270-GY; J7050; P9047

== ENCOUNTER 2018-11-12 07:00 | Emergency (ER) | payer MEDICARE, BC ==
--- NOTE | 2018-11-12 07:16 | EDM.PDOC ---
ED HPI GENERAL MEDICAL PROBLEM - General Chief Complaint: Cardiovascular Problem Stated Complaint: BP LOW [id number] Time Seen by Provider: 11/12/18 07:11 Source of Information: Reports: Patient, RN, RN Notes Reviewed History Limitations: Reports: No Limitations - History of Present Illness INITIAL COMMENTS - FREE TEXT/NARRATIVE: Pt to ER with c/o recent dizziness and "not feeling right". Patient states he passed out in the bathroom at [facility] on Tuesday. He states he was not having a BM. Patient states he has been doing more running than usual as his had surgery in [place], has been working outside. States he has been trying to drink enough water. States he takes a diuretic and has been urinating quite a bit. States his left lower leg is more swollen than usual. Patient denies any N/ V/D, chest pain, SOB, fever or chills. States hx of atrial fibrillation, on anticoagulants. 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 Denies dizziness today. Presents a list of BP's taken at home. All systolically under 100 with the lowest being 84/54. States he has not been dizzy for a few days. Onset: Gradual - Related Data Allergies Allergy/AdvReac Type Severity Reaction Status Date / Time aspartame Allergy Hives Verified 11/12/18 07:16 peanut Allergy Hives Verified 11/12/18 07:16 Home Meds: Home Meds Carvedilol 25 mg PO BID 10/30/14 [History] Digoxin [Digox] 125 mcg PO DAILY 10/30/14 [History] Lisinopril 40 mg PO DAILY 10/30/14 [History] Methylcellulose (with Sugar) [Citrucel] 454 gm PO DAILY 05/12/17 [History] Potassium Chloride [Klor-Con M20] 20 meq PO DAILY 05/12/17 [History] Warfarin [Coumadin] 2.5 mg PO ASDIRECTED 05/12/17 [History] Warfarin [Coumadin] 5 mg PO ASDIRECTED 05/12/17 [History] Spironolactone [Aldactone] 12.5 mg PO DAILY #30 tablet 05/15/17 [Rx] Torsemide [Demadex] 30 mg PO Q12H #60 tablet 05/15/17 [Rx] Past Medical History Cardiovascular History: Reports: Afib, Heart Failure Gastrointestinal History: Reports: Irritable Bowel Syndrome Musculoskeletal History: Reports: Arthritis Neurological History: Reports: Other (See Below) 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 Oncologic (Cancer) History: Reports: Other (See Below) 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 ED EXAM, GENERAL - Physical Exam Exam: See Below Exam Limited By: No Limitations General Appearance: Alert, WD/WN, No Apparent Distress Eye Exam: Bilateral Eye: EOMI, Normal Inspection Ears: Normal External Exam, Hearing Grossly Normal Nose: Normal Inspection Throat/Mouth: Normal Inspection, Normal Voice, No Airway Compromise Head: Atraumatic, Normocephalic Neck: Normal Inspection, Supple, Non-Tender, Full Range of Motion Respiratory/Chest: No Respiratory Distress, No Accessory Muscle Use, Crackles ( left base) Cardiovascular: Normal Peripheral Pulses, No JVD, No Murmur, No Rub, Irregularly Irregular (atrial fibrillation with PVC's) Peripheral Pulses: 2+: Carotid (L), Carotid (R), Radial (L), Radial (R) GI/Abdominal: Normal Bowel Sounds, Soft, Non-Tender, No Distention (Male) Exam: Deferred Rectal (Males) Exam: Deferred Back Exam: Normal Inspection, Full Range of Motion, NT Extremities: Pedal Edema (left lower extremity +2 edema), Joint Swelling (left knee) Neurological: Alert, Oriented, CN II-XII Intact, Normal Cognition, Normal Gait, Normal Reflexes, No Motor/Sensory Deficits Psychiatric: Normal Affect, Normal Mood Skin Exam: Warm, Dry, Intact, Normal Color, No Rash Lymphatic: No Adenopathy EKG INTERPRETATION EKG Date: 11/12/18 Time: 07:38 Rhythm: A-Fib Rate (Beats/Min): 84 Comparison: No Change Course - Vital Signs Last Recorded V/S: Last Vital Signs Temp 96.8 F 11/12/18 07:04 Pulse 66 11/12/18 08:18 Resp 16 11/12/18 08:18 BP 107/60 11/12/18 08:18 Pulse Ox 92 L 11/12/18 08:18 Orthostatic Blood Pressure [ 119/68 Standing] Orthostatic Blood Pressure [ 113/68 Sitting] Orthostatic Blood Pressure [ 111/61 Supine] - Orders/Labs/Meds Orders: Active Orders 24 hr Category Date Time Status EKG Documentation Completion [RC] STAT Care 11/12/18 07:34 Active Peripheral IV Care [RC] . DIRECTED Care 11/12/18 07:36 Active Peripheral IV Insertion Adult [OM.PC] Stat Oth 11/12/18 07:34 Ordered Labs: Laboratory Tests 11/12/18 11/12/18 11/12/18 Range/Units 07:35 07:42 07:42 WBC 7.8 (5.0-10.0) 10^3/uL RBC 4.49 L (4.6-6.2) 10^6/uL Hgb 14.7 (14.0-18.0) g/dL Hct 44.3 (40.0-54.0) % MCV 98.7 (80-100) fL MCH 32.7 (27.0-34.0) pg MCHC 33.2 (33.0-35.0) g/dL Plt Count 174 (150-450) 10^3/uL Neut % (Auto) 65.0 (42.2-75.2) % Lymph % (Auto) 18.6 L (20.5-50.1) % [place] % (Auto) 11.2 H (2-8) % Eos % (Auto) 4.4 H (1.0-3.0) % Baso % (Auto) 0.8 (0.0-1.0) % PT 21.5 H (9.0-12.0) SEC INR 2.2 H (0.9-1.2) Sodium (135-145) mmol/L Potassium (3.6-5.0) mmol/L Chloride (101-111) mmol/L Carbon Dioxide (21.0-31.0) mmol/L Anion Gap BUN (7-18) mg/dL Creatinine (0.6-1.3) mg/dL Est Cr Clr Drug Dosing mL/min Estimated GFR (MDRD) BUN/Creatinine Ratio Glucose (74-105) mg/dL Calcium (8.4-10.2) mg/dl Total Bilirubin (0.2-1.0) mg/dL AST (10-42) IU/L ALT (10-60) IU/L Alkaline Phosphatase (42-121) IU/L Troponin I (0.00-0.02) ng/ml B-Natriuretic Peptide (0-100) pg/ml Total Protein (6.7-8.2) g/dl Albumin (3.2-5.5) g/dl Globulin Albumin/Globulin Ratio Urine Color Yellow (YELLOW) Urine Appearance Clear (CLEAR) Urine pH 6.0 (5.0-9.0) Ur Specific [place] 1.015 (1.005-1.030) Urine Protein Negative (NEGATIVE) Urine Glucose (UA) Negative (NEGATIVE) Urine Ketones Negative (NEGATIVE) Urine Occult Blood Negative (NEGATIVE) Urine Nitrite Negative (NEGATIVE) Urine Bilirubin Negative (NEGATIVE) Urine Urobilinogen 0.2 (0.2-1.0) mg/dL Ur Leukocyte Esterase Negative (NEGATIVE) 11/12/18 Range/Units 07:42 WBC (5.0-10.0) 10^3/uL RBC (4.6-6.2) 10^6/uL Hgb (14.0-18.0) g/dL Hct (40.0-54.0) % MCV (80-100) fL MCH (27.0-34.0) pg MCHC (33.0-35.0) g/dL Plt Count (150-450) 10^3/uL Neut % (Auto) (42.2-75.2) % Lymph % (Auto) (20.5-50.1) % [place] % (Auto) (2-8) % Eos % (Auto) (1.0-3.0) % Baso % (Auto) (0.0-1.0) % PT (9.0-12.0) SEC INR (0.9-1.2) Sodium 141 (135-145) mmol/L Potassium 3.9 (3.6-5.0) mmol/L Chloride 105 (101-111) mmol/L Carbon Dioxide 27.0 (21.0-31.0) mmol/L Anion Gap 12.9 BUN 21 H (7-18) mg/dL Creatinine 0.9 (0.6-1.3) mg/dL Est Cr Clr Drug Dosing 62.28 mL/min Estimated GFR (MDRD) > 60 BUN/Creatinine Ratio 23.33 Glucose 106 H (74-105) mg/dL Calcium 7.8 L (8.4-10.2) mg/dl Total Bilirubin 1.0 (0.2-1.0) mg/dL AST 35 (10-42) IU/L ALT 25 (10-60) IU/L Alkaline Phosphatase 111 (42-121) IU/L Troponin I 0.03 H* (0.00-0.02) ng/ml B-Natriuretic Peptide 211 H (0-100) pg/ml Total Protein 5.0 L (6.7-8.2) g/dl Albumin 2.6 L (3.2-5.5) g/dl Globulin 2.4 Albumin/Globulin Ratio 1.08 Urine Color (YELLOW) Urine Appearance (CLEAR) Urine pH (5.0-9.0) Ur Specific [place] (1.005-1.030) Urine Protein (NEGATIVE) Urine Glucose (UA) (NEGATIVE) Urine Ketones (NEGATIVE) Urine Occult Blood (NEGATIVE) Urine Nitrite (NEGATIVE) Urine Bilirubin (NEGATIVE) Urine Urobilinogen (0.2-1.0) mg/dL Ur Leukocyte Esterase (NEGATIVE) Meds: Medications Discontinued Medications Generic Name Dose Route Start Last Admin Trade Name Freq PRN Reason Stop Dose Admin Lactated Ringer's 1,000 mls @ 100 mls/hr 11/12/18 08:03 11/12/18 08:10 Ringers, Lactated IV 11/12/18 18:02 100 mls/hr .BOLUS ONE Administration Sodium Chloride 10 ml 11/12/18 07:34 11/12/18 08:08 Saline Flush FLUSH 10 ml ASDIRECTED PRN Administration Keep Vein Open - Radiology Interpretation Free Text/Narrative:: Chest xray: FINDINGS: Lungs: Unremarkable. No consolidation. Pleural space: Unremarkable. No pleural effusion. No pneumothorax. Heart/Mediastinum: The heart is enlarged. Bones/joints: There are sternal wires consistent with previous sternotomy incision. IMPRESSION: No acute findings. Thank you for allowing us to participate in the care of your patient. Dictated and Authenticated by: Tomasz La MD 11/12/2018 9:00 AM Central Time ([place] & [place]) See rad report - Re-Assessments/Exams Free Text/Narrative Re-Assessment/Exam: 11/12/18 09:05 Discussed diagnostic study findings with the patient. Nothing "new or acute" found. Patient states understanding. BP has been good while in the ER. No hypotension noted. Patient states he is feeling well while in the ER. Discussed the possible need for a head CT to rule out recurrence of tumor. Patient states he will follow up with his primary care provider. He states he feels this does not need to be done at this time. Patient states he will return to the ER with any further problems. Departure - Departure Time of Disposition: 08:52 Disposition: Home, Self-Care 01 Condition: Fair Clinical Impression: Dizziness, PVC's (premature ventricular contractions) Atrial fibrillation Qualifiers: Atrial fibrillation type: chronic Qualified Code(s): I48.2 - Chronic atrial fibrillation CHF (congestive heart failure) Qualifiers: Heart failure type: unspecified Heart failure chronicity: chronic Qualified Code(s): I50.9 - Heart failure, unspecified Instructions: Near-Syncope, [id number], Heart Failure, [id number], Dizziness, [id number], Edema, [id number], Atrial Fibrillation, [id number] Forms: ED Department Discharge Additional Instructions: Make an appointment to follow up with Dr. Laguna Stay hydrated Elevate legs when possible Rest Return to the ER with any further dizziness, symptoms, or problems. - My Orders Last 24 Hours: My Active Orders 11/12/18 07:34 EKG Documentation Completion [RC] STAT Peripheral IV Insertion Adult [OM.PC] Stat 11/12/18 07:36 Peripheral IV Care [RC] . DIRECTED - Assessment/Plan Last 24 Hours: My Active Orders 11/12/18 07:34 EKG Documentation Completion [RC] STAT Peripheral IV Insertion Adult [OM.PC] Stat 11/12/18 07:36 Peripheral IV Care [RC] . DIRECTED
[2018-11-12] MEDS ORDERED: Sodium Chloride 0.9% 10 ML Syringe FLUSH PRN (07:34)
[2018-11-12] MEDS ORDERED: Lactated Ringers 1,000 ML IV ONE (08:03)
[2018-11-12 08:09] LABS: ANION GAP 12.9; CHLORIDE,CL 105 mmol/L (101-111); SODIUM,NA 141 mmol/L (135-145)
[2018-11-12 08:19] VITALS: BP 107/60
== END 2018-11-12 08:59 | disposition home or self-care (01) ==
LOC: DL.ED 07:00
DX: I49.3 Ventricular premature depolarization (principal); I50.9 Heart failure, unspecified; I48.2 Chronic atrial fibrillation; R42 Dizziness and giddiness; Z88.8 Allergy status to other drugs, medicaments and biological substances
CPT/HCPCS: 36415; 71045; 80053; 81003; 83880; 84484; 85025; 85610; 93005; 96365; 99285; J7120